=== PATIENT | male | born 1935 | race Caucasian/White ===

== ENCOUNTER → 2017-06-29 | Outpatient (CLI) | payer MEDICARE, BC | END | disposition home or self-care (01) | LOC: KCIC MRI 09:45 | DX: M48.061 Spinal stenosis, lumbar region without neurogenic claudication (principal); M51.36 Other intervertebral disc degeneration, lumbar region; M25.78 Osteophyte, vertebrae; M21.372 Foot drop, left foot | CPT/HCPCS: 72148 ==

== ENCOUNTER → 2018-12-15 | Outpatient (CLI) | payer MEDICARE, BC ==
[2017-11-12 15:00] VITALS: BP 126/53
[~2018-12-15] MED LIST: ACET500T68 PO; ASCO500C PO; ASPI81TA59 PO; BYSTOLIC10 MG PO; CARB15DR3 EACHEYE; CARB15DR4 OP; CARB1TAB2 PO; CARB1TAB43 PO; CARB1TAB5 PO; CEPH-264 PO; CHOL100013 PO; DARI7.5T3 PO; DEXA0.5E2 PO; DOCU-109 PO; ENOX40DI SQ; FERR325T14 PO; HYDR-2761 PO; METO50TA6 PO; MULT1TAB49 PO; OXYB5TAB10 PO; PIPE3.377 IV; POLY17PO29 PO; PRED1DRO OU; SENN1TAB62 PO; SIMV10TA3 PO; VANC1.2514 IV
--- NOTE | 2018-12-15 12:13 | KCIC ---
MRI Brain without contrast History: Cerebral infarction, unsteady gait, visual disturbance Technique: Multiplanar, multisequential noncontrast MR imaging was performed of the brain. Comparison: November 23, 2018 and September 21, [address] exams; brain MRI October 01, 2014 Findings: As seen on more recent head CT exam, there is fairly large area of encephalomalacia with cortical involvement centered in the right temporal lobe, some extent to the right occipital lobe. There is associated T2 and FLAIR hyperintense signal. This is associated mild diffusion signal change although mostly hyperintense on the ADC map. 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 There is smaller focus of similar signal change and encephalomalacia of the right frontal lobe with cortical involvement. There is no restricted diffusion suggestive of acute infarct. Ventricular size is within normal limits. There is mild generalized supratentorial involutional change. There is other mild T2 and FLAIR hyperintense signal of the supratentorial parenchyma bilaterally and also very minimally of the daljit. There is small focus of old microhemorrhage left parietal lobe. There is preservation of the major arterial intracranial flow voids at the skull base, vasculature not accurately evaluated. There has been lens surgery bilaterally. There is patchy minimal ethmoid air cell mucosal thickening. There is very minimal fluid left mastoid air cells. Cerebellar tonsils are normal in location. There is no abnormality of pineal gland or pituitary gland. There is preserved marrow signal of the clivus. Impression: 1. There is no evidence of acute infarct. 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 There is cortical involvement. 2. Other minimal T2 and FLAIR signal of the supratentorial parenchyma is probably due to chronic microvascular ischemic disease. 3. 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 Electronically signed by: Niall Trivedi MD (12/15/2018 12:10 PM) [id number]
== END | disposition home or self-care (01) ==
LOC: KCIC MRI 10:41
PROVIDERS: ATTEND Family Medicine
DX: G93.89 Other specified disorders of brain (principal); I67.89 Other cerebrovascular disease; G31.89 Other specified degenerative diseases of nervous system; I63.9 Cerebral infarction, unspecified
CPT/HCPCS: 70551